=== PATIENT | male | born 1980 | race Caucasian/White ===

== ENCOUNTER 2024-02-16 12:28 | Emergency (ER) | payer BC, SELFPAY ==
[2024-02-16 12:31] VITALS: BP 154/104
[2024-02-16 13:17] LABS: % Basophils 0.2 % (0-2); % Eosinophils 1.6 % (0-6); % Immature Granulocytes 0.4 % (0-0.5); % Lymphocytes 18.9 % (20.5-51.1); % Monocytes 4.4 % (1.7-9.3); % Neutrophils 74.5 % (42.2-75.2); Absolute Eosinophils 0.2 10^3/uL (0-0.7); Absolute Immature Granulocytes 0.1 10^3/uL (0-0.05); Absolute Lymphocytes 2.4 10^3/uL (1.2-3.4); Absolute Monocytes 0.6 10^3/uL (0.1-0.6); Absolute Neutrophils 9.6 10^3/uL (1.4-6.5); Hemoglobin 12.2 g/dL (13.0-18.0); Mean Corp Hgb Conc. 30.5 g/dL (33.0-37.0); Mean Corpuscular Hgb 20.2 pg (27.0-31.0); Mean Corpuscular Volume 66.1 fL (80.0-94.0); Mean Platelet Volume 9.3 fL (7.4-10.4); Nucleated Red Blood Cells % 0 % (-); Platelet Count 341 10^3/uL (130-400); Red Blood Cell Count 6.05 10^6/uL (4.70-6.10); White Blood Cell Count 12.9 10^3/uL (4.8-10.8)
[2024-02-16 13:36] LABS: ALT (SGPT) 43 U/L (0-50); AST (SGOT) 28 U/L (17-59); Albumin 4.3 g/dl (3.5-5.0); Alkaline Phosphatase 60 U/L (38-126); Blood Urea Nitrogen 14 mg/dl (9-20); Carbon Dioxide 29 mmol/L (22-30); Chloride 104 mmol/L (98-107); Glucose 103 mg/dl (70-99); Lipase 55 U/L (23-300); Potassium 4.2 mmol/L (3.5-5.1); Sodium 138 mmol/L (135-145); Total Bilirubin 0.8 mg/dl (0.2-1.3); Total Protein 7.3 g/dl (6.3-8.2); eGFR > 60.00
--- NOTE | 2024-02-16 14:09 | ED.GENMED ---
History of Present Illness
<Jerilyn Rodriguez PA-C - Last Filed: 02/16/24 20:04>
General
Chief Complaint: Abdominal Symptoms
Source: patient
Exam Limitations: none
Time Seen by Provider: 02/16/24 14:05
Nursing documentation reviewed up to this point in time: agreed with
History of Present Illness
History of Present Illness:
43 y/o male with a PMH of type 2 diabetes on metformin and munjaro presenting emergency department today with concerns of 2 weeks of diarrhea as well as epigastric pain. Patient reports that his diarrhea started around 2 weeks ago and he had
multiple episodes of loose stools each day. Patient states that he thought nothing of it at that time, as he gets diarrhea with his diabetic medications. Patient states that he usually will take probiotics and vitamins and this will prevent this
side effect. Patient states that however, this time the diarrhea did not relieved with these supplements. Patient did have 1 episode where he had. The herrera to the bathroom and so this prompted him to Imodium which did improve his symptoms
initially however his symptoms persist. Yesterday, patient developed epigastric pain which she notes is worse with lying down. Patient is associated belching and gurgling sensation in his stomach. Patient tried Tums without relief. Patient
denies radiation of the pain to his chest, denies personal history of cardiac disease.
Review of Systems
<Jerilyn Rodriguez PA-C - Last Filed: 02/16/24 20:04>
Review of Systems
All Other Systems: ROS reviewed and negative except as documented in HPI and ROS
Phy Exam
<Jerilyn Rodriguez PA-C - Last Filed: 02/16/24 20:04>
Physical Exam
Physical Exam:
General: Patient is well appearing and in no acute distress; non-toxic
Skin: Warm and dry, no rashes or lesions
Head: Normocephalic, atraumatic
Eyes: Sclera non-icteric. EOMs intact. PERRLA.
Cardiac: Regular rate and rhythm, no murmurs
Peripheral Vascular: No lower extremity swelling or edema.
Pulm: Normal respiratory effort, no wheezes, rales, or rhonchi
Abdomen: No abdominal tenderness to palpation, no pulsatile abdominal mass, no epigastric tenderness to palpation.
Neuro: CN II-XII intact, no focal neurologic deficits.
Psychiatric: Appropriate mood and affect.
Course
<Jerilyn Rodriguez PA-C - Last Filed: 02/16/24 20:04>
Orders/Labs/Results
Orders:
Orders
02/16/24 12:36
CMP [Comprehensive Metabolic Panel] Urgent
Complete Blood Count/With Diff Urgent
Lipase Urgent
02/16/24 14:46
EKG- Treatment ONCE
Mag Hydrox/Al Hydrox/Simeth [Maalox] 30 ml Phenobarb/Hyoscy/Atropine/Scop [] 10 ml PO NOW
Pantoprazole [Protonix] 40 mg PO NOW STA
02/16/24 14:47
Electrocardiogram (*1) Urgent
Reason for Study: Other
Other Reason for Exam: placed by provider
02/16/24 14:49
Mag Hydrox/Al Hydrox/Simeth [Maalox] 30 ml .ROUTE .STK-MED ONE
Phenobarb/Hyoscy/Atropine/Scop [] 10 ml .ROUTE .STK-MED ONE
02/16/24 15:32
C DIFF [C difficile Antigen & Toxins] Urgent
RVEA Source: Feces/Stool
Specimen Description:
Date Specimen was Collected: 02/16/24
Time Specimen was Collected: 15:17
Stool Culture Urgent
REVA Source: Feces/Stool
Specimen Description:
Date Specimen was Collected: 02/16/24
Time Specimen was Collected: 15:17
Abnormal Lab Results
02/16/24
12:36
WBC 12.9 H 10^3/uL
(4.8-10.8)
Hgb 12.2 L g/dL
(13.0-18.0)
MCV 66.1 L fL
(80.0-94.0)
MCH 20.2 L pg
(27.0-31.0)
MCHC 30.5 L g/dL
(33.0-37.0)
RDW 18.0 H %
(11.5-14.5)
Abs Immat Gran (auto) 0.1 H 10^3/uL
(0-0.05)
Absolute Neuts (auto) 9.6 H 10^3/uL
(1.4-6.5)
Lymphocytes % 18.9 L %
(20.5-51.1)
Glucose 103 H mg/dl
(70-99)
02/16/24 12:36
02/16/24 12:36
Vital Signs
Initial and Last Documented VS:
Initial Vital Signs
Temp Pulse Resp BP Pulse Ox
98.3 F 104 20 154/104 97
02/16/24 12:31 02/16/24 12:31 02/16/24 12:31 02/16/24 12:31 02/16/24 12:31
Last Documented Vital Signs
Temp Pulse Resp BP Pulse Ox
98.3 F 78 20 134/88 97
02/16/24 12:31 02/16/24 16:27 02/16/24 12:31 02/16/24 16:27 02/16/24 16:27
<Cornelius Moore, DO - Last Filed: 02/16/24 15:18>
Orders/Labs/Results
Orders:
Orders
02/16/24 12:36
CMP [Comprehensive Metabolic Panel] Urgent
Complete Blood Count/With Diff Urgent
Lipase Urgent
02/16/24 14:46
EKG- Treatment ONCE
Mag Hydrox/Al Hydrox/Simeth [Maalox] 30 ml Phenobarb/Hyoscy/Atropine/Scop [] 10 ml PO NOW
Pantoprazole [Protonix] 40 mg PO NOW STA
02/16/24 14:47
Electrocardiogram (*1) Urgent
Reason for Study: Other
Other Reason for Exam: placed by provider
02/16/24 14:49
Mag Hydrox/Al Hydrox/Simeth [Maalox] 30 ml .ROUTE .STK-MED ONE
Phenobarb/Hyoscy/Atropine/Scop [] 10 ml .ROUTE .STK-MED ONE
02/16/24 15:32
C DIFF [C difficile Antigen & Toxins] Urgent
REVA Source: Feces/Stool
Specimen Description:
Date Specimen was Collected: 02/16/24
Time Specimen was Collected: 15:17
Stool Culture Urgent
REVA Source: Feces/Stool
Specimen Description:
Date Specimen was Collected: 02/16/24
Time Specimen was Collected: 15:17
Abnormal Lab Results
02/16/24
12:36
WBC 12.9 H 10^3/uL
(4.8-10.8)
Hgb 12.2 L g/dL
(13.0-18.0)
MCV 66.1 L fL
(80.0-94.0)
MCH 20.2 L pg
(27.0-31.0)
MCHC 30.5 L g/dL
(33.0-37.0)
RDW 18.0 H %
(11.5-14.5)
Abs Immat Gran (auto) 0.1 H 10^3/uL
(0-0.05)
Absolute Neuts (auto) 9.6 H 10^3/uL
(1.4-6.5)
Lymphocytes % 18.9 L %
(20.5-51.1)
Glucose 103 H mg/dl
(70-99)
02/16/24 12:36
02/16/24 12:36
Vital Signs
Initial and Last Documented VS:
Initial Vital Signs
Temp Pulse Resp BP Pulse Ox
98.3 F 104 20 154/104 97
02/16/24 12:31 02/16/24 12:31 02/16/24 12:31 02/16/24 12:31 02/16/24 12:31
Last Documented Vital Signs
Temp Pulse Resp BP Pulse Ox
98.3 F 78 20 134/88 97
02/16/24 12:31 02/16/24 16:27 02/16/24 12:31 02/16/24 16:27 02/16/24 16:27
<Jerilyn Rodriguez PA-C - Last Filed: 02/16/24 20:04>
MDM/Problems Addressed
Differential Diagnosis Includes:
ddx include viral enteritis, gastroenteritis, GERD, IBS, ulcerative colitis, medication side effect
MDM/Problems Addressed:
Diarrhea, epigastric pain:
43 y/o male with a PMH of type 2 diabetes on metformin and munjaro presenting emergency department today with concerns of 2 weeks of diarrhea as well as epigastric pain. Patient reports that his diarrhea started around 2 weeks ago and he had
multiple episodes of loose stools each day. Patient states that he thought nothing of it at that time, as he gets diarrhea with his diabetic medications. Patient states that he usually will take probiotics and vitamins and this will prevent this
side effect. Patient states that however, this time the diarrhea did not relieved with these supplements. Patient has no blood in his stools, no rectal pain, no fevers or chills. Does note epigastric pain which started yesterday and his worse with
lying down with belching and indigestion. Tried tums without relief. On physical exam he is well appearing, afebrile, vitals are stable. He was able to provide stool stable here which was negative for C diff. Considering patient has no fever, no
blood in stool, stable for discharge with saymptomatic management, has GI appointment eval in march. Patient's epigastric pain hx and physical exam is consistent with dyspepsia/GERD, EKG shows on ischemic changes. Symptomatic improvement with GI
cocktail PPI will start on PPI trial. Patient stable for discharge.
Chronic conditions affecting care:
diabetes
<Jerilyn Rodriguez PA-C - Last Filed: 02/16/24 20:04>
*Pulse Oximetry
Patient hypoxic: no
*EKG
Interpreted by ED Provider?: Yes
EKG Intrepretation Date: 02/16/24
Interpretation: normal
Comparison EKG: no comparison EKG present
Heart Rate: 87
Rate: normal
Rhythm: sinus
[place]: normal axis
Interval: normal interval
QRS Pattern: normal QRS
Ischemia: no ischemia
*Critical Care Note
Total Time (30-74mins, 75-104mins- exclusive of procedures): Not Applicable
Data Reviewed
Review of Other/Old Records Reveals: Records (no previous ER physician documentation to review ) and Discharge Summary (no discharge summaries to review )
Source: patient and records
ED Attending Note
<Jerilyn Rodriguez PA-C - Last Filed: 02/16/24 20:04>
-
Portions of this chart may have been created with voice recognition software.� Occasional wrong word or��sound alike� substitutions may have occurred due to the inherent limitations of voice recognition software.
<Cornelius Moore DO - Last Filed: 02/16/24 15:18>
ED Attending Note
Patient seen and examined by attending physician: Yes
I performed the substantive portion of visit, reviewed & personally made and approve the management plan that is documented in note by myself or HUSSAIN.: Yes
ED Attending Note:
I have seen and evaluated the patient with a [id number] encounter. I have spoken to the advance practicer provider and involved in the medical history, the physical exam, medical decision making.
Evaluation and management service: agree unless noted differently below.
Results interpretation: agree unless noted differently below.
Focused HPI: 43-year-old male presenting with several weeks of intermittent diarrhea. He denies vomiting or nausea. In between these episodes, he has had formed stool. Given the ongoing issues, he made appointment with GI but it is not until next
month. Denies recent travel
Physical exam: Sitting in bed comfortably. Abdomen soft and nontender
Medical Decision Making: Patient has mild leukocytosis but is afebrile. Will obtain stool samples and C diff. Given no abdominal pain, discussed low utility for CT abdomen/pelvis
Discharge Plan
Departure
Patient Disposition: Home (Routine Discharge)
Date of Disposition: 02/16/24
Time of Disposition: 16:21
Patient with high blood pressure during this ER visit?: Yes
Condition: Good
Discharge Problem:
Diarrhea
Instructions: [place] Diet, Diarrhea, Adult ED, Abdominal pain in adults - Discharge instructions, BLOOD PRESSURE
Prescriptions:
New
pantoprazole 20 mg tablet,delayed release (DR/EC)
20 mg PO DAILY 14 Days Qty: 14 0RF
Referrals:
Elbert Leonard DO [Family Provider] -
Activity Restrictions/Additional Instructions:
Your c. diff stool test was negative. We will call you with the results of your stool culture.
Starting tomorrow, please start taking one pantoprazole tablet once daily for 2 weeks. Please follow up with gastroenterology in March as scheduled.
Please return to the emergency department should you experience chest pain, shortness of breath, fevers or chills, rectal bleeding, bloody stools, lightheadedness, dizziness, acute worsening of your symptoms, or other signs or symptoms concerning to
you.
Please follow up with your primary care provider.
Interventions
Interventions:
*Risk Screen - Suicide Last Done: 02/16/24 12:31
*General Assessment Last Done: 02/16/24 12:31
*Neglect/Abuse Screening Last Done: 02/16/24 12:31
*Nursing Disposition Last Done: 02/16/24 16:27
DR-Hyyhdf-[id number] Assessment Last Done: 02/16/24 16:26
Discharge Date and Time
Discharge Date/Time: 02/16/24 16:28
Print Language: [email or web address]
[2024-02-16] MEDS: PROTONIX 40 MG PO (14:52)
[2024-02-16] MEDS: MAALOX 40 PO (14:52)
[2024-02-16 16:27] VITALS: BP 134/88
== END 2024-02-16 16:28 | disposition home or self-care (01) ==
LOC: EMR 12:28
PROVIDERS: Emergency Medicine; EMERGENCY PHYSICIAN Student in an Organized Health Care Education/Training Program; FAMILY PHYSICIAN Family Medicine
DX: R19.7 Diarrhea, unspecified (principal); R10.13 Epigastric pain; K30 Functional dyspepsia; R03.0 Elevated blood-pressure reading, without diagnosis of hypertension; E11.9 Type 2 diabetes mellitus without complications; Z79.899 Other long term (current) drug therapy
CPT/HCPCS: 99283; 80053; 83690; 85025; 87045; 87046; 87324; 87427; 87449; 93005